=== PATIENT | male | born 1965 | race Two or more races ===

== ENCOUNTER 2018-08-05 17:45 | Emergency (ER) | payer MEDICAID ==
[~2018-08-05] VITALS: Ht 165.1 cm; Wt 91.0 kg
[2018-08-05] MEDS ORDERED: CYCLOBENZAPRINE 10MG TABLET PO ONE (21:30)
[2018-08-05] MEDS ORDERED: KETOROLAC 60MG/2ML VIAL IM ONE (21:30)
[2018-08-05 22:09] VITALS: BP 121/71
== END 2018-08-05 22:22 | disposition home or self-care (01) ==
LOC: ER 17:45
DX: M54.89 Other dorsalgia (principal); I10 Essential (primary) hypertension; F17.210 Nicotine dependence, cigarettes, uncomplicated
CPT/HCPCS: 96372; 99283; J1885